=== PATIENT | female | born 1940 ===

== ENCOUNTER 2018-06-25 07:16 | Day surgery (SDC) | payer MEDICARE ==
--- NOTE | 2018-06-25 08:36 | CP.SDSHP ---
Same Day Surgery H & P - History Proposed Procedure: colonscopy Pre-Op Diagnosis: SEE NOTES - Previous Medical/Surgical History Cardiac: Hypertension, Arrhythmia Endocrine/Metabolic: Diabetes Neuro: Backaches Misc: Other Pain: 4.Moderate Pain - Allergies Allergies: Allergies aspirin Allergy (Verified 06/25/18 07:48) VOMITING - Physical Exam General Appearance: N Vital Signs: Vital Signs 06/25/18 07:59 Temperature 96 F L Pulse Rate 87 Respiratory 18 Rate Blood Pressure 119/63 O2 Sat by Pulse 99 Oximetry Mental Status: Alert & Oriented x3 Neuro: WNL Heart: Other Lungs: WNL GI: Other - {Optional Preform as Required} Breast: WNL Abdomen: Other Rectal: Other Integument: WNL : WNL Ortho: Other ENT: WNL - Impression Pt. Evaluated Today:Candidate for Anesthesia & Procedure: Yes - Date & Time Time: 08:36 Short Stay Discharge - Short Stay Discharge Admitting Diagnosis/Reason for Visit: DIARRHEA Disposition: HOME/ ROUTINE
[2018-06-25 08:48] VITALS: O2SAT 100
[2018-06-25] MEDS ORDERED: Belladonna-Phenobarbital PO ONE (09:15)
[2018-06-25 10:23] VITALS: TEMP 96.3
[2018-06-25 10:33] VITALS: BP 150/68; PULSE 78; RESP 19
== END 2018-06-25 10:30 | disposition home or self-care (01) ==
LOC: C.ENDO 07:16
PROVIDERS: ATTEND Specialist
DX: K58.0 Irritable bowel syndrome with diarrhea (principal); R10.84 Generalized abdominal pain; K64.4 Residual hemorrhoidal skin tags; K64.8 Other hemorrhoids; E11.9 Type 2 diabetes mellitus without complications; I10 Essential (primary) hypertension; K52.9 Noninfective gastroenteritis and colitis, unspecified
CPT/HCPCS: 45380; 88305; J1720

== ENCOUNTER 2018-06-29 09:26 | Day surgery (SDC) | payer MEDICARE ==
[2018-06-29 09:59] VITALS: O2SAT 100
--- NOTE | 2018-06-29 10:55 | CP.SDSHP ---
Same Day Surgery H & P - History Proposed Procedure: EGD Pre-Op Diagnosis: SEE NOTES - Previous Medical/Surgical History Cardiac: Hypertension Pulmonary: Asthma Neuro: Backaches Misc: Other Pain: 4.Moderate Pain - Allergies Allergies: Allergies aspirin Allergy (Verified 06/29/18 09:50) VOMITING - Physical Exam General Appearance: N Vital Signs: Vital Signs 06/29/18 06/29/18 09:35 10:21 Temperature 97.1 F L Pulse Rate 81 81 Respiratory 16 Rate Blood Pressure 134/56 L O2 Sat by Pulse 100 Oximetry Mental Status: Alert & Oriented x3 Neuro: WNL Heart: Other Lungs: Other GI: Other - {Optional Preform as Required} Breast: WNL Abdomen: Other Rectal: Other Integument: WNL : WNL Ortho: Other ENT: WNL - Impression Pt. Evaluated Today:Candidate for Anesthesia & Procedure: Yes - Date & Time Time: 10:55 Short Stay Discharge - Short Stay Discharge Admitting Diagnosis/Reason for Visit: FUNCTIONAL DYSPEPSIA Disposition: HOME/ ROUTINE Referrals: Long Knox MD [Primary Care Provider] -
[2018-06-29] MEDS: Lactated Ringer's 500 ML IV ONE ×2 (10:58→11:03)
[2018-06-29] MEDS ORDERED: Lactated Ringer's 500 ML IV ONE (10:58)
[2018-06-29] MEDS ORDERED: Belladonna-Phenobarbital PO STA (10:59)
[2018-06-29] MEDS ORDERED: Propofol 10 mg/ml Inj (20 ML) ONE (11:01)
[2018-06-29] MEDS ORDERED: Lidocaine Hydrochloride 5 ML INJ ONE (11:01)
[2018-06-29 11:38] VITALS: RESP 16
[2018-06-29 12:01] VITALS: BP 130/60; PULSE 77; TEMP 97
== END 2018-06-29 12:25 | disposition home or self-care (01) ==
LOC: C.ENDO 09:26
PROVIDERS: ATTEND Specialist
DX: K30 Functional dyspepsia (principal); K29.70 Gastritis, unspecified, without bleeding; K44.9 Diaphragmatic hernia without obstruction or gangrene
CPT/HCPCS: 43239; 88305; 88342; J2704